=== PATIENT | male | born 1970 | race Caucasian/White ===

== ENCOUNTER 2021-06-07 13:30 | Inpatient (IN) | payer BC ==
[2021-07-24] MEDS ORDERED: Acetaminophen 500 MG TAB ONE (11:56)
[2021-07-24] MEDS ORDERED: Ketorolac Tromethamine 30 MG/ML VIAL ONE ×2 (11:56→19:18)
[2021-07-24] MEDS ORDERED: Midazolam HCl 2 mg/2 ml Vial ONE (12:03)
[2021-07-24] MEDS ORDERED: Fentanyl 100 MCG/2 ML VIAL ONE ×4 (12:03→18:28)
[2021-07-24] MEDS ORDERED: cefOXitin 2 GM VIAL ONE (13:17)
[2021-07-24] MEDS ORDERED: Sodium Chloride 0.9% 100 ML ONE (13:17)
[2021-07-24] MEDS ORDERED: Ketamine 50 MG/ML (10ML VIAL) ONE (13:31)
[2021-07-24] MEDS ORDERED: Glycopyrrolate 0.2 MG/ML 5 ML SYRINGE ONE (13:36)
[2021-07-24] MEDS ORDERED: PROPOFOL 200 MG/20 ML VIAL ONE (13:36)
[2021-07-24] MEDS ORDERED: Ondansetron PF 4 MG/2 ML Vial ONE (13:36)
[2021-07-24] MEDS ORDERED: Lidocaine 1% PF 5 ML VIAL ONE (13:36)
[2021-07-24] MEDS ORDERED: Labetalol HCl 100 MG/20 ML VIAL ONE (13:36)
[2021-07-24] MEDS ORDERED: Dexamethasone 20 MG/5 ML VIAL ONE (13:36)
[2021-07-24] MEDS ORDERED: Bupivacaine HCl 0.5%/Epinephrine 1:200,000/PF 30 ml Vial ONE (13:36)
[2021-07-24] MEDS ORDERED: Rocuronium Bromide 10 MG/ML (10ML VIAL) ONE (13:36)
[2021-07-24] MEDS ORDERED: Xylocaine 1% w/ Epi 1:100K 10 ML VIAL ONE ×2 (13:51→14:15)
[2021-07-24] MEDS ORDERED: Albumin 5% 500 ML ONE (14:00)
[2021-07-24] MEDS ORDERED: Indocyanine Green 25 MG/10 ML VIAL ONE (14:17)
[2021-07-24] MEDS ORDERED: cefOXitin Sodium/Dextrose 2 GM/50 ML BAG ONE (15:49)
[2021-07-24] MEDS ORDERED: Promethazine HCl 25 MG/ML VIAL IM PRN (17:13)
[2021-07-24] MEDS ORDERED: Morphine 4 MG/ML VIAL SLOW IVP PRN ×2 (17:13→17:42)
[2021-07-24] MEDS ORDERED: hydrALAZINE 20 MG/ML VIAL SLOW IVP PRN (17:13)
[2021-07-24] MEDS ORDERED: Ondansetron PF 4 MG/2 ML Vial IVP PRN (17:13)
[2021-07-24] MEDS: Ketorolac Tromethamine 30 MG/ML VIAL IVP SCH (19:16)
[2021-07-24] MEDS: Famotidine 20 MG TAB PO SCH (22:49)
[2021-07-24] MEDS: D5 1/2 NS w/20 mEq KCL 1,000 ML IV SCH (22:50)
[2021-07-24] MEDS: Famotidine/PF 20 mg/2ml Vial SLOW IVP SCH (23:35)
[2021-07-25] MEDS: Ketorolac Tromethamine 30 MG/ML VIAL IVP SCH ×5 (00:10→23:47)
[2021-07-25 01:20] VITALS: BMI 26.6
[2021-07-25] MEDS: D5 1/2 NS w/20 mEq KCL 1,000 ML IV SCH ×2 (05:14→09:57)
[2021-07-25 06:07] LABS: #Monocytes 1.3 thou/uL (0.11-0.59); #Neutrophils 8.9 thou/uL (1.40-6.50); %Basophils 0.1 % (0.0-1.0); %Eosinophils 0.3 % (0.0-10.0); %Lymphocytes 8.6 % (21.0-51.0); %Monocytes 11.7 % (0.0-10.0); %Neutrophils 79.4 % (42.0-75.0); Hemoglobin 14.3 g/dL (14.0-18.0); Mean Corpuscular HGB CONC 33.6 g/dL (32.0-36.0); Mean Corpuscular Hemoglobin 33.4 pg (27.0-31.0); Mean Corpuscular Volume 99.5 fL (78.0-98.0); Mean Platelet Volume 7.5 fL (7.4-10.4); Platelet Count 170 thou/uL (130-400); RBC Distribution Width 11.2 % (11.5-14.5); Red Blood Cell (RBC) Count 4.28 mill/uL (4.70-6.10); White Blood Cell (WBC) Count 11.2 thou/uL (4.8-10.8)
[2021-07-25 06:29] LABS: Anion Gap 13 mmol/L (10-20); BUN (Urea Nitrogen) 12 mg/dL (8.4-25.7); Calc. Creatinine Clearance 99 mL/min (70-130); Carbon Dioxide 26 mmol/L (22-29); Chloride 102 mmol/L (98-107); Glucose 125 mg/dL (70-105); Potassium 3.8 mmol/L (3.5-5.1); Sodium 137 mmol/L (136-145)
[2021-07-25] MEDS: Enoxaparin Sodium 40 MG/0.4 ML SYRINGE SC SCH (09:51)
[2021-07-25] MEDS: Famotidine 20 MG TAB PO SCH ×2 (09:51→19:55)
[2021-07-25] MEDS: Lisinopril 10 MG TAB PO SCH (09:51)
[2021-07-25] MEDS: HYDROcodone/Acetaminophen 7.5/325 mg Tablet PO PRN (09:54)
[2021-07-25] MEDS: Famotidine/PF 20 mg/2ml Vial SLOW IVP SCH ×2 (09:56→20:10)
[2021-07-25] MEDS ORDERED: HYDROcodone/Acetaminophen 7.5/325 mg Tablet PO PRN (16:51)
[2021-07-26] MEDS: HYDROcodone/Acetaminophen 7.5/325 mg Tablet PO PRN (04:00)
[2021-07-26] MEDS: Ketorolac Tromethamine 30 MG/ML VIAL IVP SCH (06:14)
[2021-07-26] MEDS: D5 1/2 NS w/20 mEq KCL 1,000 ML IV SCH (06:14)
[2021-07-26] MEDS: Famotidine 20 MG TAB PO SCH (08:03)
[2021-07-26] MEDS: Famotidine/PF 20 mg/2ml Vial SLOW IVP SCH (08:03)
[2021-07-26] MEDS: Lisinopril 10 MG TAB PO SCH (08:03)
[2021-07-26] MEDS: Enoxaparin Sodium 40 MG/0.4 ML SYRINGE SC SCH (08:03)
[2021-07-26 11:45] VITALS: BP 148/91; TEMP 98.2
== END 2021-07-26 12:55 | disposition home or self-care (01) | DRG 330 ==
LOC: SURG A 07-24 11:23
PROVIDERS: ADMIT Specialist; ATTEND Specialist
PROC: 0DBH4ZZ Excision of Cecum, Percutaneous Endoscopic Approach (ICD-10-PCS; principal; 2021-07-24)
PROC: 0DBB4ZZ Excision of Ileum, Percutaneous Endoscopic Approach (ICD-10-PCS; 2021-07-24)
PROC: 8E0W4CZ Robotic Assisted Procedure of Trunk Region, Percutaneous Endoscopic Approach (ICD-10-PCS; 2021-07-24)
DX: C7A.012 Malignant carcinoid tumor of the ileum (principal); C7B.01 Secondary carcinoid tumors of distant lymph nodes; C7B.09 Secondary carcinoid tumors of other sites; F17.220 Nicotine dependence, chewing tobacco, uncomplicated; Z79.899 Other long term (current) drug therapy; Z98.1 Arthrodesis status; Z90.89 Acquired absence of other organs
CPT/HCPCS: 36415; 80048; 85025; 88309; J0694; J1100; J1650; J1885; J2250; J2405; J2704; J3010; J3480; J3490; P9045

== ENCOUNTER 2021-07-19 13:17 | Outpatient (CLI) | payer BC ==
[2021-07-19 15:32] LABS: #Basophils 0.1 10x3/uL (0.0-0.2); #Eosinphils 0.1 10x3/uL (0.0-0.5); #Monocytes 0.7 10x3/uL (0.0-1.1); #Neutrophils 3.3 10x3/uL (1.5-8.4); %Basophils 1.5 % (0.0-2.0); %Eosinophils 1.3 % (0.0-6.0); %Lymphocytes 22.8 % (18.0-47.0); %Monocytes 12.5 % (0.0-10.0); %Neutrophils 61.7 % (40.0-75.0); Hemoglobin 15.8 g/dL (13.5-17.5); Mean Corpuscular HGB CONC 34.1 g/dL (32.0-36.0); Mean Corpuscular Hemoglobin 33.1 pg (27.0-33.0); Mean Corpuscular Volume 96.9 fl (81.2-95.1); Mean Platelet Volume 10.3 fl (7.4-10.4); Platelet Count 203 10x3/uL (150-450); RBC Distribution Width 11.5 % (11.5-14.5); Red Blood Cell (RBC) Count 4.78 10x6/uL (4.32-5.72); White Blood Cell (WBC) Count 5.3 10x3/uL (3.5-10.5)
[2021-07-19 16:00] LABS: Anion Gap 13 mmol/L (10-20); BUN (Urea Nitrogen) 16 mg/dL (8.4-25.7); Calc. Creatinine Clearance 0 mL/min (70-130); Calcium 9.7 mg/dL (7.8-10.44); Carbon Dioxide 30 mmol/L (22-29); Chloride 103 mmol/L (98-107); Glucose 144 mg/dL (70-105); Potassium 4.2 mmol/L (3.5-5.1); Sodium 142 mmol/L (136-145)
[2021-07-19 19:52] LABS: Hemoglobin A1c 5.6 % (4.0-6.0)
[2021-07-20 09:12] LABS: SARS-CoV-2 PCR by NAA Not Detected (NotDetected)
== END 2021-07-19 13:18 | disposition home or self-care (01) ==
LOC: LABBT 13:17
PROVIDERS: ATTEND Specialist
DX: Z01.818 Encounter for other preprocedural examination (principal); D3A.00 Benign carcinoid tumor of unspecified site; Z20.822 Contact with and (suspected) exposure to COVID-19
CPT/HCPCS: 80048; 83036; 85025; 93005; 93010; U0003; U0005

== ENCOUNTER 2022-05-07 11:34 | Outpatient (CLI) | payer BC ==
[~2022-05-07 11:34] MED LIST: Iopamidol-370 76% 500 ML 1 ML ONE
== END 2022-05-07 11:35 | disposition home or self-care (01) ==
LOC: BICCT 11:34
PROVIDERS: ATTEND Internal Medicine Gastroenterology
DX: Z08 Encounter for follow-up examination after completed treatment for malignant neoplasm (principal); Z85.060 Personal history of malignant carcinoid tumor of small intestine
CPT/HCPCS: 74178; 82565; Q9967